=== PATIENT | male | born 1995 | race Caucasian/White ===

== ENCOUNTER 2022-07-14 14:18 | Emergency (ER) | payer BC ==
[2022-07-14] MEDS ORDERED: diphenhydrAMINE 25 MG CAP ONE (15:02)
[2022-07-14] MEDS ORDERED: Famotidine 20 MG TAB ONE (15:02)
== END 2022-07-14 15:32 | disposition home or self-care (01) ==
LOC: MADERS 14:18
DX: S20.462A Insect bite (nonvenomous) of left back wall of thorax, initial encounter (principal); F17.220 Nicotine dependence, chewing tobacco, uncomplicated; W57.XXXA Bitten or stung by nonvenomous insect and other nonvenomous arthropods, initial encounter
CPT/HCPCS: 99282